=== PATIENT | male | born 1980 | race African-American/Black ===

== ENCOUNTER 2018-01-31 21:14 | Emergency (ER) | payer MEDICAID ==
[~2018-01-31] VITALS: Ht 175.3 cm; Wt 100.0 kg
[~2018-01-31 21:14] MED LIST: SEROQUEL; TRAZADONE; [UNRECOGNIZED DRUG - OTHER]
[2018-01-31] MEDS ORDERED: QUETIAPINE FUMARATE 100MG TABLET PO SCH (22:15)
[2018-01-31 22:42] LABS: BASOPHILS % 0.4 % (0.0-2.0); EOSINOPHILS % 0.2 % (0.0-5.0); HEMATOCRIT. 46.5 % (42.0-52.0); HEMOGLOBIN. 15.8 g/dL (14.0-18.0); LYMPHOCYTES % 17.2 % (20.0-50.0); MEAN CORPUSCULAR HEMOGLOBIN 29.4 pg (28.0-32.0); MEAN CORPUSCULAR VOLUME 86.3 fL (80.0-94.0); MEAN PLATELET VOLUME 8.1 fl (7.4-10.4); MONOCYTES % 5.9 % (2.0-8.0); NEUTROPHILS % 76.3 % (40.0-76.0); PLATELET 400 x1000/uL (130-400); RED BLOOD CELL COUNT 5.39 mill/uL (4.7-6.1); RED CELL DISTRIBUTION WIDTH 15.1 % (11.6-14.6)
[2018-01-31 22:46] LABS: CHLORIDE 108 mEq/L (98-107)
[2018-01-31 22:51] LABS: ETHANOL BLOOD < 10 mg/dL
[2018-01-31 23:41] LABS: CLARITY URINE CLEAR (CLEAR); COLOR URINE DARK YELLOW (YELLOW); KETONES URINE 1+ (NEGATIVE); LEUKOCYTE ESTERASE URINE NEGATIVE (NEGATIVE); NITRITE URINE NEGATIVE (NEGATIVE); OCCULT BLOOD URINE 1+ (NEGATIVE); PROTEIN URINE TRACE (NEGATIVE); SPECIFIC GRAVITY URINE 1.022 (1.005-1.030)
[2018-02-01] MEDS ORDERED: POTASSIUM CHLORIDE 20MEQ TABLET SR PO ONE
[2018-02-01 00:05] LABS: *AMPHETAMINES SCREEN URINE PRESUMTIVE POSITIVE (NEGATIVE)
[2018-02-01 00:07] LABS: *BARBITURATES SCREEN URINE NEGATIVE (NEGATIVE); *BENZODIAZEPINES SCREEN URINE NEGATIVE (NEGATIVE); *COCAINE SCREEN URINE NEGATIVE (NEGATIVE); CANNABINOID URINE SCREEN NEGATIVE (NEGATIVE); METHADONE URINE SCREEN NEGATIVE (NEGATIVE); OPIATES URINE SCREEN NEGATIVE (NEGATIVE); PHENCYCLIDINE URINE SCREEN NEGATIVE (NEGATIVE)
[2018-02-01 10:18] VITALS: BP 126/80
[2018-02-01] MEDS ORDERED: TRAZODONE HCL 50MG TABLET PO SCH (21:00)
== END 2018-02-01 10:28 | disposition home or self-care (01) ==
LOC: ER 21:14
DX: R45.851 Suicidal ideations (principal); E87.6 Hypokalemia; F20.9 Schizophrenia, unspecified; F31.9 Bipolar disorder, unspecified; F14.10 Cocaine abuse, uncomplicated; Z79.899 Other long term (current) drug therapy
CPT/HCPCS: 36415; 80053; 80178; 80305; 80307; 80329; 81003; 85025; 93005; 99284; G0482

== ENCOUNTER 2022-12-01 14:48 | Emergency (ER) | payer MEDICAID ==
[~2022-12-01] VITALS: Ht 180.3 cm; Wt 109.0 kg
[2022-12-01] MEDS ORDERED: QUET300T2 MT (15:28)
[2022-12-01] MEDS ORDERED: QUETIAPINE FUMARATE 50MG TABLET PO ONE (15:30)
[2022-12-01 16:33] VITALS: BP 138/81
== END 2022-12-01 16:37 | disposition home or self-care (01) ==
LOC: ER 15:39
DX: K94.03 Colostomy malfunction (principal); E78.00 Pure hypercholesterolemia, unspecified; I10 Essential (primary) hypertension; Z76.0 Encounter for issue of repeat prescription; Z00.00 Encounter for general adult medical examination without abnormal findings; Z86.59 Personal history of other mental and behavioral disorders
CPT/HCPCS: 99283

== ENCOUNTER 2022-12-08 01:40 | Emergency (ER) | payer OTHER ==
[~2022-12-08] VITALS: Ht 172.7 cm; Wt 102.0 kg
[~2022-12-08 01:40] MED LIST changes: +QUET300T2 MT
[2022-12-08 01:51] VITALS: BP 118/80
== END 2022-12-08 02:11 | disposition left against medical advice (07) ==
LOC: ER 01:40
DX: Z53.21 Procedure and treatment not carried out due to patient leaving prior to being seen by health care provider (principal)
CPT/HCPCS: 99281

== ENCOUNTER 2022-12-08 02:42 | Emergency (ER) | payer OTHER ==
[~2022-12-08] VITALS: Ht 180.3 cm; Wt 103.0 kg
[2022-12-08 02:51] VITALS: BP 143/92; PULSE 105; RESP 16; TEMP 98.6; O2SAT 98
== END 2022-12-08 03:23 | disposition home or self-care (01) ==
LOC: ER 02:42
DX: R68.89 Other general symptoms and signs (principal)
CPT/HCPCS: 99281

== ENCOUNTER 2023-01-21 05:52 | Emergency (ER) | payer OTHER ==
[~2023-01-21] VITALS: Ht 180.3 cm; Wt 103.5 kg
[2023-01-21 06:03] VITALS: O2SAT 98
[2023-01-21 06:32] LABS: BASOPHILS % 0.9 % (0.0-2.0); EOSINOPHILS % 1.4 % (0.0-5.0); HEMATOCRIT. 42.7 % (42.0-52.0); HEMOGLOBIN. 14.7 g/dL (14.0-18.0); LYMPHOCYTES % 29.6 % (20.0-50.0); MEAN CORPUSCULAR HEMOGLOBIN 30.6 pg (28.0-32.0); MEAN CORPUSCULAR VOLUME 89.1 fL (80.0-94.0); MEAN PLATELET VOLUME 7.9 fl (7.4-10.4); MONOCYTES % 7.2 % (2.0-8.0); NEUTROPHILS % 60.9 % (40.0-76.0); PLATELET 369 x1000/uL (130-400); RED BLOOD CELL COUNT 4.79 mill/uL (4.7-6.1); RED CELL DISTRIBUTION WIDTH 13.8 % (11.6-14.6)
[2023-01-21 06:42] LABS: CHLORIDE 115 mEq/L (98-107)
[2023-01-21 06:51] LABS: ETHANOL BLOOD 11 mg/dL (-10)
[2023-01-21] MEDS ORDERED: OLANZAPINE 5MG TABLET ODT PO ONE (07:15)
[2023-01-21 10:15] VITALS: BP 131/87; PULSE 77; RESP 16; TEMP 98.6
== END 2023-01-21 10:16 | disposition home or self-care (01) ==
LOC: ER 05:58
DX: R45.851 Suicidal ideations (principal); R44.0 Auditory hallucinations
CPT/HCPCS: 36415; 80053; 80307; 80320; 80329; 85025; 99283; G0480

== ENCOUNTER 2023-02-02 14:37 | Emergency (ER) | payer OTHER ==
[~2023-02-02] VITALS: Ht 180.3 cm; Wt 109.0 kg
[2023-02-02 14:47] VITALS: BP 120/90; PULSE 83; RESP 16; TEMP 98.3; O2SAT 100
== END 2023-02-02 15:26 ==
LOC: ER 14:43
DX: Z93.3 Colostomy status (principal); I10 Essential (primary) hypertension; Z00.00 Encounter for general adult medical examination without abnormal findings
CPT/HCPCS: 99283

== ENCOUNTER 2023-03-04 22:22 | Emergency (ER) | payer OTHER ==
[~2023-03-04] VITALS: Ht 177.8 cm; Wt 90.0 kg
[2023-03-04 22:23] VITALS: BP 112/88; PULSE 82; RESP 16; TEMP 98.5; O2SAT 98
== END 2023-03-05 03:50 | disposition home or self-care (01) ==
LOC: ER 22:22
DX: T51.0X1A Toxic effect of ethanol, accidental (unintentional), initial encounter (principal); I10 Essential (primary) hypertension; Z98.890 Other specified postprocedural states; Y92.89 Other specified places as the place of occurrence of the external cause
CPT/HCPCS: 99283

== ENCOUNTER 2023-04-10 21:16 | Emergency (ER) | payer MEDICAID, OTHER ==
[2023-04-10 22:23] VITALS: PULSE 81
[2023-04-12] MEDS ORDERED: QUET300T20 PO (02:47)
[2023-04-12] MEDS ORDERED: TRAZ-252 PO (02:47)
[2023-04-12] MEDS ORDERED: SERT-112 PO (02:47)
== END 2023-04-11 01:44 | disposition left against medical advice (07) ==
LOC: ER 22:11
DX: Z53.21 Procedure and treatment not carried out due to patient leaving prior to being seen by health care provider (principal)
CPT/HCPCS: 99281

== ENCOUNTER 2024-07-20 09:49 | Emergency (ER) | payer MEDICAID ==
[~2024-07-20] VITALS: Ht 172.7 cm; Wt 80.0 kg
[~2024-07-20 09:49] MED LIST changes: +CEPH500C2 MT; +COLO-487 MC; +DICL100G58 TP; +LIP40 PO; +MULT-379 PO; +NAPR-681 MT; +QUET25TA PO; -QUET300T2 MT; -SEROQUEL; +SERT-112 PO; +SULF1TAB48 PO; +THIA100T72 PO; +TRAZ-252 PO; -TRAZADONE; -[UNRECOGNIZED DRUG - OTHER]
[2024-07-20 09:52] VITALS: BP 128/75; PULSE 88; RESP 16; O2SAT 96
== END 2024-07-20 10:47 | disposition home or self-care (01) ==
LOC: ER 09:49
DX: Z93.3 Colostomy status (principal); F32.A Depression, unspecified; F15.90 Other stimulant use, unspecified, uncomplicated; I10 Essential (primary) hypertension; Z79.899 Other long term (current) drug therapy
CPT/HCPCS: 99283

== ENCOUNTER 2024-08-15 18:03 | Emergency (ER) | payer MEDICAID ==
[~2024-08-15] VITALS: Ht 165.1 cm; Wt 87.0 kg
[2024-08-15 18:14] VITALS: TEMP 37.1; O2SAT 98
[2024-08-15 20:35] VITALS: BP 112/70; PULSE 89; RESP 16; O2SAT 99
== END 2024-08-15 20:37 | disposition home or self-care (01) ==
LOC: ER 18:03
DX: Z93.3 Colostomy status (principal); I10 Essential (primary) hypertension; F32.A Depression, unspecified; F15.90 Other stimulant use, unspecified, uncomplicated; Z90.49 Acquired absence of other specified parts of digestive tract; Z79.899 Other long term (current) drug therapy
CPT/HCPCS: 99281